=== PATIENT | female | born 1945 | race Caucasian/White ===

== ENCOUNTER → 2016-09-27 | Outpatient (CLI) | payer OTHER ==
[~2016-09-27] MED LIST: ASPI1TAB83 PO; CLON1TAB3 PO; ELQ25 PO; LPR25 PO; MECL1TAB40 PO; MULTTAB58 PO; RABE20TA5 PO; ZNTT/150 PO
--- NOTE | 2016-09-28 06:44 | PAP/PSG TECHNICIAN REPORT ---
[facility] Saw Feeder Polysomnogram Report Study name: None Report date: 09/28/2016 Study date: 09/27/2016 Referring Physician: Almaz ARANDA M.D. Name: EBEN JEREZ Interpreting Physician: Mar Aranda M.D. Date of : 1945 Saw Feeder: Prosper Clemente RPSGT. Sex: Female Age: 71 StudyType: PSG Weight: 210 lbs Height: 71 years, Height 5' 10" BMI: 30.13 Medications: ELIQUIS 5 MG, RANITIDINE 150 MG, RABEPRAZOLE SODIUM 20 MG, LOSARTAN 50 MG, FLUTICASONE 50 MCG/ACT, DIGOXIN 125 MCG, METOPROLOL TARTRATE 50 MG, CLONAZEPAM 1 MG, B-12 1000 MCG, CETIRIZINE 10 MG Patient History PATIENT HAS HISTORY OF DAYTIME SLEEPINESS AND FATIGUE. SHE GENERALLY TAKES A NAP EVERYDAY, SOMETIMES FOR A FEW HOURS AT A TIME. SHE ALSO HAS HISTORY OF ATRIAL FIBRILLATION. SHE IS HERE TODAY FOR AN EVALUATION OF VANESA. ESS = 8 RM 8 Parameters Monitored NPSG: E1-M2, E2-M1, Fp1-M2, Fp2-M1, F3-M2, F4-M2, F4-M1, C3-M2, C4-M2, C4-M1, O1-M2, O2-M2, O2-M1, T3-M2, T4-M1, P3-M2, P4-M1, CHIN1, CHIN2, HR, EKG, Legs, PFLOW, SNOR, FLOW, CFLOW, Tidal Volume, THOR, ABDO, SpO2, PLTH, CPRESS, ETCO2 Wave, ETCO2, pH Sleep Architecture Sleep Stages Time at Lights Off 9:34:27 PM STAGES Time (min.) TST (%) Time at Lights On 5:52:27 AM Wake 218.5 -- Total Recording Time (TRT) 498.50 min. N1 39.0 14 Total Sleep Period (TSP) 458.0 min. N2 177.5 64 Total Sleep Time (TST) 279.5min. N3 37.0 13 Awake Time 219.0 min. REM 26.0 9 Wake after Sleep Onset 188.0 min. Sleep Efficiency (SE) 56 % Sleep Onset Latency (CHRIS) 30.5 min. Number of Stage 1 Shifts None Awakenings 39 Stage Changes 113 Number of REM periods 3 REM 26.0 9 REM Latency 260.5 min. NREM 253.5 91 Body Position Analysis Supine Right Left Side Prone Vertical Total Sleep Time (min.) 26.4 2.2 269.7 271.91 0.0 0.0 Total Sleep Time (%) 3% 1% 96% 97 0% N/A% Total Sleep Time REM (min.) 0.0 0.0 26.0 None 0.0 0.0 Total Sleep Time NREM (min.) 7.6 2.2 243.7 None 0.0 0.0 Intermittent Wake (min.) 18.8 9.3 190.4 None 0.0 0.0 Total Sleep Period (%) 5% None None None None None Arousals Myoclonus (PLM) * Events Count Index Events Count Index Spontaneous 17 4 Events Awake (PLMW) 0 0.0 Respiratory 10 2.1 Events Asleep w/ Arousal (PLMA) 40 8.6 PLM 38 9 Events Asleep w/o Arousal (PLMS) 788 169.2 Snoring 1 0 Total Asleep 828 177.7 Total 66 14 Total 828 100 Respiratory Analysis * CA OA MA CH H RERA Total Count 0 2 0 0 47 0 49 Index 0.0 0.4 0.0 0 10.1 0 10.5 Mean Duration 0.0 22.3 0.0 0.00 17.1 0.0 17.3 Longest Duration 0.0 23.4 0.0 0.00 0.0 0.0 24.5 Respiratory Event Summary Total Supine ~Supine Right Left Prone REM NREM Apneas Count 2 2 0 0 0 N/A 0 2 Index 0.4 16 0 0.0 0.0 N/A 0 0 Hypopneas (4% Desat) Count 47 8 39 1 38 N/A 5 42 Index 10.1 63.3 9 27.0 8.5 N/A 11.5 9.9 Apneas & All Hypopneas Count 49 10 39 1 38 N/A 5 44 Index 10.5 79 9 27 8 N/A 11.5 10.4 Respiratory Events (Furniture Upholsterer+All Hyp+RERA) Count 49 10 39 1 38 N/A 5 44 Index 10.5 79 9 27.0 8.5 N/A 11.5 10.4 Respiratory Related Arousal Count 10 10 5 0 5 N/A 0 10 Index 2.1 40 1 0 1 N/A 0 2 Snoring Analysis Supine Right Left Prone REM NREM Total Snore duration 16.6 min Snores count 20 1 728 N/A 10 739 749 Snore mean duration 1.3 Sec Snores index 158 27 162 N/A 23.1 174.9 160.8 TST with snoring (%) 5.9% Desaturation Event Summary: Minimum %SpO2 Event Count Mean/Min/Max Duration(sec.) Desaturation Index % Time In Bed > 90 22 21.5 / 10.5 / 40.0 17.6 15.3 86 - 90 47 29.0 / 9.5 / 54.8 11.6 49.6 81 - 85 10 29.3 / 9.5 / 49.5 3.5 34.8 76 - 80 0 N/A 0.0 0.2 71 - 75 0 N/A 0.0 0.0 66 - 70 0 N/A 0.0 0.0 61 - 65 0 N/A 0.0 0.0 56 - 60 0 N/A 0.0 0.0 51 - 55 0 N/A 0.0 0.0 < 50 0 N/A 0.0 0.0 Total REM NREM Awake <50% 0.0 min. 0.0 min. 0.0 min. 0.0 min. 51 - 60% 0.0 min. 0.0 min. 0.0 min. 0.0 min. 61 - 70% 0.0 min. 0.0 min. 0.0 min. 0.0 min. 71 - 80% 1.2 min. 0.3 min. 0.6 min. 0.3 min. 81 - 90% 415.3 min. 25.5 min. 246.2 min. 143.6 min. 91 - 100% 75.1 min. 0.2 min. 6.8 min. 68.2 min. Average 87 85 86 89 Minimum SpO2 76 80 76 78 Desaturation Event Index 6.9 11.5 12.3 0.3 # Desat. Events below 89% 56 5 51 0 Time(%) with Saturation below 89% 70.4 5.1 47.1 18.2 Time(min.) with Saturation below 89% 346.0 25.2 231.5 89.4 Time (mins) REM (mins) NREM (mins) % of TST SpO2 Below 90% 57 5 N52 95.9 SpO2 Below 88% 24 0 0 85 Heart Rate Analysis Min (bpm) Max (bpm) Average (bpm) Awake 61 93 74 NREM 60 86 73 REM 63 91 72 Overall 60 91 73 Supplemental O2 Values Minimum O2 level: None Value Start Time End Time Saw Feeder Comments Mrs. Jerez slept in the right, left and supine positions. Irregular EKG noted at times. Leg movements noted. No bruxism noted. Snoring was noted and scored as a 3 on a scale of 1 through 5. (0=no snoring, 5=snoring loud enough to be heard through a closed door or down the luis way) Mrs. Jerez awoke to use the restroom 1 time during the night. Mrs. Jerez stated I did not sleep as well as I do when I am in my own bed. The final report will be interpreted and signed by a sleep physician. The completed physician report will then be placed in the patient medical record. Therapy (cm H2O) 0 TIB (min.) 498.0 TST (min.) 279.5 Sleep Onset (min.) 30.5 REM Onset From Sleep (min.) 260.5 Sleep Efficiency % 56 Wakefulness (%) 44 Wakefulness (min.) 219.0 NREM 1 (%) 14 NREM 1 (min.) 39.0 NREM 2 (%) 64 NREM 2 (min.) 177.5 NREM 3 (%) 13 NREM 3 (min.) 37.0 REM (%) 9 REM (min.) 26.0 # Arousals 66 Arousal Index 14 # Snore 749 Snore Index 160.8 AHI 10.5 AHI Supine 79 AHI Non-Supine 9 NREM AHI 10.4 REM AHI 11.5 RDI 10.5 # Obstructive Apnea 2 # Central Apnea 0 # Mixed Apnea 0 # Hypopneas 47 RERAs 0 Total Respiratory Events 49 Time Below SpO2 89% (min.) 256.7 Mean NREM SpO2 (%) 86 Mean REM SpO2 (%) 85 Mean Sleep SpO2 (%) 85 Min NREM SpO2 (%) 76 Min REM SpO2 (%) 80 Position Supine (min.) 26.4 Position Non-supine (min.) 271.9 LM Index Sleep 177.7 LM Index NREM 191.5 LM Index REM 43.8 Mean Heart Rate (bpm) 73 Min Heart Rate (bpm) 60
--- NOTE | 2016-10-15 12:16 | POLYSOMNOGRAPH REPORT ---
REFERRING PERSON: Dr. Leon Aranda. SOCKET WELDER HELPER: Prosper Clemente. Ms. Jerez is a 71-year-old female with excessive daytime sleepiness and fatigue. She naps daily. She has a history of atrial fibrillation. She is here to rule out obstructive sleep apnea as a contributor to how she feels. Her [place] sleepiness scale score on the evening of this study is 8. BMI is 30.13. Following the technical and digital specifications of the [place] [employer] (AASM) a standard diagnostic polysomnogram was performed monitoring EEG, EOG, EMG (chin and leg deviations), oxygen saturation, body position, digital video, respiratory effort and airflow. The sleep Stage and event scoring was based on the AASM Manual for the Scoring of Sleep and Associated Events 2007 edition. Apneas are defined as a drop in the peak thermal sensor excursion by >90% of baseline for at least 10 seconds. Hypopneas were scored using the 4% oxygen desaturation rule (4A-[employer]) and a decrease in the nasal pressure excursions by >30% of baseline for at least 10 seconds. Respiratory effort-related arousal (RERA's) is defined as a sequence of breaths lasting at least 10 seconds characterized by increasing respiratory effort or flattening of the nasal pressure waveform leading to an arousal from sleep when the sequence of breaths does not meet criteria for an apnea or hypopnea. Apnea Hypopnea index (AHI) is defined as the number of apneas and hypopneas occurring in an hour of sleep. Respiratory disturbance index (RDI) is defined as the number of apneas, hypopneas, and RERA's occurring in an hour of sleep. Ms. Jerez's total sleep period time was 458 minutes. Total sleep time was only 279.5 minutes. Sleep efficiency was 56%. Latency to sleep onset was 30.5 minutes with wake after sleep onset of 188 minutes. Total non-REM sleep time was 253.5 minutes. She spent 14% of that time in N1 sleep, 64% in N2 sleep and 13% in N3 sleep. REM latency was 260.5 minutes. Total REM sleep time was 26 minutes or 9% of total sleep time. There were 66 cortical arousals from sleep. 17 of these arousals were spontaneous, 10 were due to respiratory events, 38 were due to periodic limb movements and 1 was due to snoring. Limb movements, there were 828 limb movements noted on this test. Limb movement index was 177.7; however, limb movement with arousal index was 8.6. There were no central, 2 obstructive and no mixed apneas on this test. There were 47 hypopneas and no RERA. Apnea-hypopnea index was 10.5 consistent with mild sleep apnea. Supine AHI was 79, non-supine AHI was 9 and REM AHI was 11.5. There were 749 snoring events recorded. Total sleep time with snoring was 5.9%. Mean saturation was low at 87% with desaturations to 76% on this test. Her saturations dropped to below 80s shortly after sleep onset and remained low throughout the study. Saturations were less than 89 for 346 minutes of recorded time. There was an irregularly irregular EKG noted on this test. Heart rates ranged from a low of 60 beats per minute to a high of 91 beats per minute during sleep. IMPRESSION AND PLAN: A 71-year-old female with a history of atrial fibrillation with evidence of severe nocturnal hypoxemia as well as mild sleep apnea on this sleep study. 1. This patient may benefit from positive airway pressure therapy. She should return to sleep lab for a full night titration and then based on those results, be started on an equipment at home. A download from her machine can be reviewed in 1 month both to check compliance as well as AHI and further pressure adjustments can occur at that time. This patient may need oxygen supplementation in addition to CPAP therapy to improve her hypoxemia. 2. Should this patient be unwilling or unable to tolerate CPAP therapy, she should be started on nocturnal oxygen and then referred to ear, nose and throat or oral surgery/dental medicine to discuss alternative treatments for sleep disorder breathing.
== END | disposition home or self-care (01) ==
LOC: C.NEUR 20:00
PROVIDERS: ATTEND Family Medicine
DX: G47.10 Hypersomnia, unspecified (principal)